=== PATIENT | female | born 1975 | race Caucasian/White ===

== ENCOUNTER 2020-10-30 12:54 | Inpatient (IN) ==
[2020-10-30 14:46] LABS: Basophils % 1.1 %; Eosinophils # 0.2 K/mcL (0.0-0.6); Hematocrit 43.7 % (35.3-44.9); Immature Granulocytes % 0.3 % (0-4); Lymphocytes # 2.1 K/mcL (0.6-4.6); Lymphocytes % 55.7 %; Mean Corpuscular Hemoglobin 31.4 pg (28.0-33.3); Mean Platelet Volume 10.9 fL (9.4-12.4); Monocytes # 0.3 K/mcL (0.0-1.3); Monocytes % 7.7 %; Neutrophils # 1.2 K/mcL (1.6-8.9); Platelet Count 200 K/mcL (140-400); Red Blood Count 4.46 M/mcL (3.82-4.97); Red Cell Distribution Width 15.5 % (11.5-14.5); Segmented Neutrophils % 30.2 %; White Blood Count 3.8 K/mcL (4.3-11.1)
[2020-10-30 15:03] LABS: BUN/Creatinine Ratio 39 (6-26); Blood Urea Nitrogen 30 mg/dL (6-20); Calcium 9.7 mg/dL (8.6-10.3); Carbon Dioxide 26 mEq/L (23-29); Chloride 107 mEq/L (98-107); Glucose 101 mg/dL (70-105); Osmolality,Calculated 294 (280-300); Potassium 4.1 mEq/L (3.5-5.1); Sodium 139 mEq/L (136-145); eGFR For African Americans > 60 (> 60); eGFR For Non-African Americans > 60 (> 60)
[2020-10-30 15:04] LABS: Troponin I < 0.03 ng/mL (< 0.04)
[2020-10-30] MEDS ORDERED: 0.9 % Sodium Chloride 1,000 ML IVC ONE ×2 (15:31→19:30)
[2020-10-30] MEDS ORDERED: Piperacillin/Tazobactam 3.375 GM in 0.9 % Sodium Chloride Mini Bag 100 ML IVPB ONE (15:59)
[2020-10-30 16:13] LABS: Prothrombin Time 11.7 Seconds (9.4-12.1)
[2020-10-30 16:15] LABS: Activated Partial Thrombo Time 38.1 Seconds (26.0-36.0)
[2020-10-30 16:16] LABS: Alanine Aminotransferase 63 Units/L (7-52); Albumin 3.3 g/dL (3.5-5.7); Albumin/Globulin Ratio 0.9 (1.1-2.2); Alkaline Phosphatase 254 Units/L (34-104); Aspartate Amino Transferase 54 Units/L (13-39); Bilirubin,Direct 0.1 mg/dL (0.0-0.2); Bilirubin,Indirect 0.3 mg/dL (0.0-1.0); Bilirubin,Total 0.4 mg/dL (0.3-1.0); Globulin 3.5 g/dL (2.4-3.5); Magnesium 2.2 mg/dL (1.6-2.6); Phosphorous 4.1 mg/dL (2.7-4.5); Total Protein 6.8 g/dL (6.4-8.9)
[2020-10-30] MEDS ORDERED: Acyclovir 1,000 MG in D5% in Water 250 ML IVPB ONE (17:19)
[2020-10-30] MEDS ORDERED: Acyclovir 600 MG in D5% in Water 250 ML IVPB ONE (17:30)
[2020-10-30 18:05] LABS: Bacteria,Urine Few per hpf (None-Few); Bilirubin,Urine Negative (Negative); Blood,Urine Large (Negative); Budding Yeast,Urine Few per hpf (None Seen); Clarity,Urine Turbid (Clear); Color,Urine Yellow (Yellow); Glucose,Urine (UA) Normal (Normal); Ketones,Urine Negative (Negative); Leukocyte Esterase,Urine Large (Negative); Mucus,Urine Few per lpf (None-Few); Nitrite,Urine Negative (Negative); PH,Urine 7.5 pH Units (5.0-8.0); Protein,Urine Trace mg/dL (Neg-Trace); RBC,Urine TNTC per hpf (0-3); Squamous Epithelial Cell,Urine Few per hpf (None-Few); Urobilinogen,Urine Normal (Normal); WBC,Urine TNTC per hpf (0-3)
[2020-10-30] MEDS ORDERED: Naloxone 0.4 MG/ML INJ IVP PRN (21:01)
[2020-10-30] MEDS ORDERED: Ondansetron 4 MG/2 ML VIAL IVP PRN (21:01)
[2020-10-31 01:17] LABS: INR 1.1; Prothrombin Time 12.6 Seconds (9.4-12.1)
[2020-10-31 01:34] LABS: Alanine Aminotransferase 56 Units/L (7-52); Albumin 3.4 g/dL (3.5-5.7); Alkaline Phosphatase 250 Units/L (34-104); Aspartate Amino Transferase 43 Units/L (13-39); BUN/Creatinine Ratio 30 (6-26); Bilirubin,Total 0.4 mg/dL (0.3-1.0); Blood Urea Nitrogen 22 mg/dL (6-20); Calcium 9.4 mg/dL (8.6-10.3); Carbon Dioxide 21 mEq/L (23-29); Chloride 112 mEq/L (98-107); Globulin 3.3 g/dL (2.4-3.5); Glucose 81 mg/dL (70-105); Osmolality,Calculated 294 (280-300); Potassium 3.7 mEq/L (3.5-5.1); Sodium 141 mEq/L (136-145); Total Protein 6.7 g/dL (6.4-8.9); eGFR For African Americans > 60 (> 60); eGFR For Non-African Americans > 60 (> 60)
[2020-10-31] MEDS ORDERED: Ringers Solution, Lactated 1,000 ML IVC SCH (01:45)
[2020-10-31] MEDS ORDERED: cefTRIAXone 2,000 MG in Water for inj. (sterile) 20 ML IVP SCH (02:00)
[2020-10-31] MEDS: *HR* Heparin 5,000 UNIT/ML VIAL SQ SCH ×3 (05:25→20:00)
[2020-10-31 05:45] LABS: Basophils % 0.8 %; Eosinophils # 0.2 K/mcL (0.0-0.6); Eosinophils % 3.5 %; Hematocrit 41.8 % (35.3-44.9); Hemoglobin 13.3 g/dL (11.5-15.4); Immature Granulocytes % 0.2 % (0-4); Lymphocytes # 2.2 K/mcL (0.6-4.6); Mean Corpuscular HGB Conc 31.8 g/dL (31.6-35.5); Mean Corpuscular Hemoglobin 32.2 pg (28.0-33.3); Mean Corpuscular Volume 101.2 fL (83.0-100.0); Mean Platelet Volume 10.9 fL (9.4-12.4); Monocytes # 0.4 K/mcL (0.0-1.3); Monocytes % 7.1 %; Neutrophils # 2.3 K/mcL (1.6-8.9); Platelet Count 196 K/mcL (140-400); Red Blood Count 4.13 M/mcL (3.82-4.97); Red Cell Distribution Width 15.9 % (11.5-14.5); Segmented Neutrophils % 45.4 %; White Blood Count 5.1 K/mcL (4.3-11.1)
[2020-10-31] MEDS ORDERED: Furosemide 20 MG/2 ML VIAL IVP ONE (07:04)
[2020-10-31] MEDS ORDERED: Perflutren Lipid Microsphere 1.3 ML in 0.9 % Sodium Chloride 8.7 ML IVP PRN (07:50)
[2020-10-31 08:16] LABS: ABG Base Excess -2 mEq/L (-2 to 3); ABG HCO3 25 mEq/L (21-27); ABG Oxygen Saturation 100 % (95-98); ABG PCO2 47 mmHg (35-45); ABG PH 7.33 pH Units (7.32-7.45); ABG PO2 180 mmHg (85-104); ABG TCO2 26 mEq/L (20-26)
[2020-10-31 08:49] LABS: Adenovirus Not Detected (Not Detect); Bordetella Pertussis Not Detected (Not Detect); Chlamydophila pneumoniae Not Detected (Not Detect); Coronavirus 229E Not Detected (Not Detect); Coronavirus HKU1 Not Detected (Not Detect); Coronavirus NL63 Not Detected (Not Detect); Coronavirus OC43 Not Detected (Not Detect); Human Metapneumovirus Not Detected (Not Detect); Human Rhinovirus/Enterovirus Not Detected (Not Detect); Influenza A Subtype 2009 H1 Not Detected (Not Detect); Influenza B Not Detected (Not Detect); Mycoplasma pneumoniae Not Detected (Not Detect); Parainfluenza Virus 1 Not Detected (Not Detect); Parainfluenza Virus 2 Not Detected (Not Detect); Parainfluenza Virus 3 Not Detected (Not Detect); Parainfluenza Virus 4 Not Detected (Not Detect); Respiratory Syncytial Virus Not Detected (Not Detect); SARS-CoV-2 Not Detected (Not Detect)
[2020-10-31] MEDS: Piperacillin/Tazobactam 3.375 GM in 0.9 % Sodium Chloride Mini Bag 100 ML IVPB SCH ×3 (10:14→23:04)
[2020-10-31] MEDS: Ipratropium/Albuterol Neb 3 ML IH SCH ×3 (10:53→22:59)
[2020-11-01] MEDS: Ipratropium/Albuterol Neb 3 ML IH SCH ×2 (04:39→11:20)
[2020-11-01] MEDS: *HR* Heparin 5,000 UNIT/ML VIAL SQ SCH ×3 (04:56→20:02)
[2020-11-01] MEDS: Piperacillin/Tazobactam 3.375 GM in 0.9 % Sodium Chloride Mini Bag 100 ML IVPB SCH ×3 (07:37→23:00)
[2020-11-01 08:41] LABS: Alanine Aminotransferase 51 Units/L (7-52); Albumin 3.5 g/dL (3.5-5.7); Alkaline Phosphatase 247 Units/L (34-104); Aspartate Amino Transferase 34 Units/L (13-39); BUN/Creatinine Ratio 20 (6-26); Blood Urea Nitrogen 18 mg/dL (6-20); Calcium 9.3 mg/dL (8.6-10.3); Carbon Dioxide 26 mEq/L (23-29); Chloride 114 mEq/L (98-107); Globulin 3.6 g/dL (2.4-3.5); Glucose 93 mg/dL (70-105); Osmolality,Calculated 308 (280-300); Potassium 3.6 mEq/L (3.5-5.1); Sodium 148 mEq/L (136-145); Total Protein 7.1 g/dL (6.4-8.9); eGFR For African Americans > 60 (> 60); eGFR For Non-African Americans > 60 (> 60)
[2020-11-01 08:42] LABS: Bilirubin,Total 0.4 mg/dL (0.3-1.0)
[2020-11-01 08:43] LABS: Magnesium 2.3 mg/dL (1.6-2.6); Phosphorous 3.2 mg/dL (2.7-4.5)
[2020-11-01 08:57] LABS: Basophils # 0.1 K/mcL (0.0-0.2); Eosinophils # 0.2 K/mcL (0.0-0.6); Eosinophils % 3.1 %; Hemoglobin 14.2 g/dL (11.5-15.4); Immature Granulocytes % 0.2 % (0-4); Mean Corpuscular HGB Conc 32.3 g/dL (31.6-35.5); Mean Corpuscular Hemoglobin 31.9 pg (28.0-33.3); Mean Corpuscular Volume 98.9 fL (83.0-100.0); Mean Platelet Volume 11.3 fL (9.4-12.4); Monocytes # 0.4 K/mcL (0.0-1.3); Monocytes % 8.1 %; Neutrophils # 2.6 K/mcL (1.6-8.9); Platelet Count 218 K/mcL (140-400); Red Blood Count 4.45 M/mcL (3.82-4.97); Red Cell Distribution Width 15.9 % (11.5-14.5); Segmented Neutrophils % 49.6 %; White Blood Count 5.2 K/mcL (4.3-11.1)
[2020-11-01] MEDS ORDERED: Acetaminophen 325 MG TABLET PO PRN (10:24)
[2020-11-01] MEDS ORDERED: Atropine 1% Opth Drops 100 DROP/5 ML BOTTLE SL PRN (10:24)
[2020-11-01] MEDS ORDERED: *HR* LORazepam 2 MG/ML VIAL IVP PRN (10:27)
[2020-11-01] MEDS ORDERED: MOM Conc 10 ML UD.LIQ GTUBE PRN (10:32)
[2020-11-01] MEDS ORDERED: Calamine/Zinc oxide Lotion 120 ML BOTTLE TP PRN (10:33)
[2020-11-01] MEDS ORDERED: Ipratropium/Albuterol Neb 3 ML IH PRN (11:31)
[2020-11-01] MEDS: lamoTRIgine 100 MG TABLET GTUBE SCH ×2 (12:28→20:02)
[2020-11-01] MEDS: Baclofen 10 MG TABLET GTUBE SCH ×2 (14:40→20:02)
[2020-11-01] MEDS: Valproic Acid Oral Soln 250 MG/5 ML UDC GTUBE SCH (14:40)
[2020-11-01] MEDS: polyethylene glycoL 3350 17 GM POWD.PACK GTUBE SCH (17:00)
[2020-11-01] MEDS: Docusate Oral Soln 100 MG/10 ML UDC GTUBE SCH (20:02)
[2020-11-02] MEDS: Valproic Acid Oral Soln 250 MG/5 ML UDC GTUBE SCH ×2 (02:39→14:52)
[2020-11-02 03:51] LABS: Basophils # 0.1 K/mcL (0.0-0.2); Basophils % 0.7 %; Eosinophils # 0.3 K/mcL (0.0-0.6); Eosinophils % 4.5 %; Hematocrit 41.4 % (35.3-44.9); Hemoglobin 13.2 g/dL (11.5-15.4); Immature Granulocytes % 0.1 % (0-4); Mean Corpuscular HGB Conc 31.9 g/dL (31.6-35.5); Mean Corpuscular Hemoglobin 31.1 pg (28.0-33.3); Mean Corpuscular Volume 97.6 fL (83.0-100.0); Mean Platelet Volume 11.3 fL (9.4-12.4); Monocytes # 0.6 K/mcL (0.0-1.3); Monocytes % 8.9 %; Neutrophils # 2.7 K/mcL (1.6-8.9); Platelet Count 209 K/mcL (140-400); Red Blood Count 4.24 M/mcL (3.82-4.97); Red Cell Distribution Width 15.9 % (11.5-14.5); Segmented Neutrophils % 40.8 %; White Blood Count 6.7 K/mcL (4.3-11.1)
[2020-11-02 04:06] LABS: BUN/Creatinine Ratio 18 (6-26); Blood Urea Nitrogen 15 mg/dL (6-20); Calcium 9.4 mg/dL (8.6-10.3); Carbon Dioxide 27 mEq/L (23-29); Chloride 113 mEq/L (98-107); Glucose 135 mg/dL (70-105); Magnesium 2.2 mg/dL (1.6-2.6); Osmolality,Calculated 313 (280-300); Phosphorous 2.4 mg/dL (2.7-4.5); Potassium 3.3 mEq/L (3.5-5.1); Sodium 150 mEq/L (136-145); eGFR For African Americans > 60 (> 60); eGFR For Non-African Americans > 60 (> 60)
[2020-11-02] MEDS: Vancomycin 500 MG in 0.9 % Sodium Chloride Mini Bag 100 ML IVPB SCH (05:20)
[2020-11-02] MEDS: *HR* Heparin 5,000 UNIT/ML VIAL SQ SCH ×3 (05:20→20:00)
[2020-11-02] MEDS: Piperacillin/Tazobactam 3.375 GM in 0.9 % Sodium Chloride Mini Bag 100 ML IVPB SCH ×2 (08:07→14:52)
[2020-11-02] MEDS: Docusate Oral Soln 100 MG/10 ML UDC GTUBE SCH ×2 (08:08→19:59)
[2020-11-02] MEDS: Baclofen 10 MG TABLET GTUBE SCH ×3 (08:08→19:59)
[2020-11-02] MEDS: Potassium Chloride Elixir 20 MEQ/15 ML UDC GTUBE SCH (08:08)
[2020-11-02] MEDS: Artificial Tears SOLN 15 ML BOTTLE OP SCH (08:08)
[2020-11-02] MEDS: lamoTRIgine 100 MG TABLET GTUBE SCH ×2 (08:08→19:59)
[2020-11-02] MEDS: polyethylene glycoL 3350 17 GM POWD.PACK GTUBE SCH (16:53)
[2020-11-02] MEDS ORDERED: Potassium Chloride Elixir 20 MEQ/15 ML UDC GTUBE ONE (17:35)
[2020-11-03] MEDS: Valproic Acid Oral Soln 250 MG/5 ML UDC GTUBE SCH ×2 (01:26→12:42)
[2020-11-03] MEDS: Piperacillin/Tazobactam 3.375 GM in 0.9 % Sodium Chloride Mini Bag 100 ML IVPB SCH ×4 (01:26→23:00)
[2020-11-03] MEDS: Vancomycin 500 MG in 0.9 % Sodium Chloride Mini Bag 100 ML IVPB SCH (04:57)
[2020-11-03] MEDS: *HR* Heparin 5,000 UNIT/ML VIAL SQ SCH ×3 (04:57→23:00)
[2020-11-03] MEDS: Baclofen 10 MG TABLET GTUBE SCH ×3 (07:29→22:32)
[2020-11-03] MEDS: lamoTRIgine 100 MG TABLET GTUBE SCH ×2 (07:29→20:12)
[2020-11-03] MEDS: Docusate Oral Soln 100 MG/10 ML UDC GTUBE SCH ×2 (07:29→20:12)
[2020-11-03] MEDS: Potassium Chloride Elixir 20 MEQ/15 ML UDC GTUBE SCH (07:29)
[2020-11-03] MEDS: Artificial Tears SOLN 15 ML BOTTLE OP SCH (07:30)
[2020-11-03 08:54] LABS: Hematocrit 44.8 % (35.3-44.9); Hemoglobin 14.1 g/dL (11.5-15.4); Mean Corpuscular HGB Conc 31.5 g/dL (31.6-35.5); Mean Corpuscular Hemoglobin 31.8 pg (28.0-33.3); Mean Corpuscular Volume 100.9 fL (83.0-100.0); Mean Platelet Volume 11.1 fL (9.4-12.4); Platelet Count 196 K/mcL (140-400); Red Blood Count 4.44 M/mcL (3.82-4.97); Red Cell Distribution Width 16.6 % (11.5-14.5); White Blood Count 5.5 K/mcL (4.3-11.1)
[2020-11-03 10:14] LABS: Alanine Aminotransferase 34 Units/L (7-52); Albumin 3.4 g/dL (3.5-5.7); Albumin/Globulin Ratio 0.9 (1.1-2.2); Alkaline Phosphatase 205 Units/L (34-104); Aspartate Amino Transferase 29 Units/L (13-39); BUN/Creatinine Ratio 17 (6-26); Bilirubin,Total 0.3 mg/dL (0.3-1.0); Blood Urea Nitrogen 13 mg/dL (6-20); Calcium 9.3 mg/dL (8.6-10.3); Carbon Dioxide 16 mEq/L (23-29); Chloride 116 mEq/L (98-107); Globulin 3.6 g/dL (2.4-3.5); Glucose 85 mg/dL (70-105); Osmolality,Calculated 299 (280-300); Sodium 145 mEq/L (136-145); eGFR For African Americans > 60 (> 60); eGFR For Non-African Americans > 60 (> 60)
[2020-11-03] MEDS: polyethylene glycoL 3350 17 GM POWD.PACK GTUBE SCH (15:57)
[2020-11-04] MEDS: Valproic Acid Oral Soln 250 MG/5 ML UDC GTUBE SCH ×2 (01:45→13:06)
[2020-11-04] MEDS: *HR* Heparin 5,000 UNIT/ML VIAL SQ SCH ×3 (06:16→20:36)
[2020-11-04] MEDS: Vancomycin 500 MG in 0.9 % Sodium Chloride Mini Bag 100 ML IVPB SCH (06:16)
[2020-11-04] MEDS: lamoTRIgine 100 MG TABLET GTUBE SCH ×2 (07:34→20:36)
[2020-11-04] MEDS: Docusate Oral Soln 100 MG/10 ML UDC GTUBE SCH ×2 (07:34→20:36)
[2020-11-04] MEDS: Potassium Chloride Elixir 20 MEQ/15 ML UDC GTUBE SCH (07:34)
[2020-11-04] MEDS: Baclofen 10 MG TABLET GTUBE SCH ×3 (07:35→20:36)
[2020-11-04] MEDS: Piperacillin/Tazobactam 3.375 GM in 0.9 % Sodium Chloride Mini Bag 100 ML IVPB SCH ×3 (07:35→23:20)
[2020-11-04] MEDS: Artificial Tears SOLN 15 ML BOTTLE OP SCH (07:35)
[2020-11-04] MEDS: polyethylene glycoL 3350 17 GM POWD.PACK GTUBE SCH (14:48)
[2020-11-05] MEDS: Valproic Acid Oral Soln 250 MG/5 ML UDC GTUBE SCH ×2 (02:33→13:37)
[2020-11-05] MEDS: *HR* Heparin 5,000 UNIT/ML VIAL SQ SCH (05:03)
[2020-11-05] MEDS: Vancomycin 750 MG in 0.9 % Sodium Chloride Mini Bag 100 ML IVPB SCH (06:03)
[2020-11-05] MEDS: Baclofen 10 MG TABLET GTUBE SCH ×3 (07:35→20:15)
[2020-11-05] MEDS: Potassium Chloride Elixir 20 MEQ/15 ML UDC GTUBE SCH (07:35)
[2020-11-05] MEDS: Docusate Oral Soln 100 MG/10 ML UDC GTUBE SCH ×2 (07:35→20:15)
[2020-11-05] MEDS: lamoTRIgine 100 MG TABLET GTUBE SCH ×2 (07:35→20:15)
[2020-11-05] MEDS: Artificial Tears SOLN 15 ML BOTTLE OP SCH (07:36)
[2020-11-05] MEDS: Piperacillin/Tazobactam 3.375 GM in 0.9 % Sodium Chloride Mini Bag 100 ML IVPB SCH ×3 (07:36→23:12)
[2020-11-05] MEDS: polyethylene glycoL 3350 17 GM POWD.PACK GTUBE SCH (16:19)
[2020-11-06] MEDS: Valproic Acid Oral Soln 250 MG/5 ML UDC GTUBE SCH (01:29)
[2020-11-06] MEDS: Vancomycin 750 MG in 0.9 % Sodium Chloride Mini Bag 100 ML IVPB SCH (05:28)
[2020-11-06] MEDS ORDERED: *HR* Enoxaparin 40 MG/0.4 ML SYRINGE SQ SCH (06:00)
[2020-11-06 06:26] VITALS: BP 123/86
[2020-11-06] MEDS: Piperacillin/Tazobactam 3.375 GM in 0.9 % Sodium Chloride Mini Bag 100 ML IVPB SCH (08:40)
[2020-11-06] MEDS: lamoTRIgine 100 MG TABLET GTUBE SCH (08:40)
[2020-11-06] MEDS: Docusate Oral Soln 100 MG/10 ML UDC GTUBE SCH (08:41)
[2020-11-06] MEDS: Potassium Chloride Elixir 20 MEQ/15 ML UDC GTUBE SCH (08:41)
[2020-11-06] MEDS: Baclofen 10 MG TABLET GTUBE SCH (08:41)
[2020-11-06] MEDS: Artificial Tears SOLN 15 ML BOTTLE OP SCH (08:51)
== END 2020-11-06 13:08 | disposition other institution (70) | DRG 720 ==
LOC: EMEROOARM 12:54 → 3BNU 12:54 → SUATTDRO 19:34 → 3BNU 20:21 → SUATTDRO 11-01 13:03
PROVIDERS: ADMIT Internal Medicine; ATTEND Nurse Practitioner

== ENCOUNTER 2020-11-18 16:04 | Inpatient (IN) ==
[2020-11-18 17:04] LABS: Bacteria,Urine Few per hpf (None-Few); Bilirubin,Urine Negative (Negative); Blood,Urine Large (Negative); Clarity,Urine Clear (Clear); Color,Urine Yellow (Yellow); Glucose,Urine (UA) Normal (Normal); Ketones,Urine Negative (Negative); Leukocyte Esterase,Urine Large (Negative); Mucus,Urine Few per lpf (None-Few); Nitrite,Urine Negative (Negative); PH,Urine 7.5 pH Units (5.0-8.0); Protein,Urine Negative (Neg-Trace); Specific Gravity,Urine < 1.005 (1.010-1.025); Squamous Epithelial Cell,Urine Few per hpf (None-Few); Urobilinogen,Urine Normal (Normal); WBC,Urine 15-30 per hpf (0-3)
[2020-11-18] MEDS ORDERED: cefTAZidime 2,000 MG in 0.9 % Sodium Chloride Mini Bag 100 ML IVP STA (17:11)
[2020-11-18 17:21] LABS: Basophils # 0.1 K/mcL (0.0-0.2); Basophils % 0.7 %; Eosinophils # 0.2 K/mcL (0.0-0.6); Eosinophils % 2.9 %; Hematocrit 41.2 % (35.3-44.9); Hemoglobin 13.3 g/dL (11.5-15.4); Immature Granulocytes % 0.4 % (0-4); Lymphocytes # 2.4 K/mcL (0.6-4.6); Lymphocytes % 33.4 %; Mean Corpuscular HGB Conc 32.3 g/dL (31.6-35.5); Mean Corpuscular Hemoglobin 31.6 pg (28.0-33.3); Mean Corpuscular Volume 97.9 fL (83.0-100.0); Mean Platelet Volume 9.9 fL (9.4-12.4); Monocytes # 0.6 K/mcL (0.0-1.3); Monocytes % 7.7 %; Neutrophils # 3.9 K/mcL (1.6-8.9); Platelet Count 290 K/mcL (140-400); Red Blood Count 4.21 M/mcL (3.82-4.97); Red Cell Distribution Width 15.9 % (11.5-14.5); Segmented Neutrophils % 54.9 %; White Blood Count 7.1 K/mcL (4.3-11.1)
[2020-11-18 17:39] LABS: Alanine Aminotransferase 19 Units/L (7-52); Albumin 3.6 g/dL (3.5-5.7); Albumin/Globulin Ratio 0.9 (1.1-2.2); Alkaline Phosphatase 181 Units/L (34-104); Aspartate Amino Transferase 20 Units/L (13-39); BUN/Creatinine Ratio 35 (6-26); Bilirubin,Direct 0.1 mg/dL (0.0-0.2); Bilirubin,Indirect 0.1 mg/dL (0.0-1.0); Bilirubin,Total 0.2 mg/dL (0.3-1.0); Blood Urea Nitrogen 27 mg/dL (6-20); Calcium 9.7 mg/dL (8.6-10.3); Carbon Dioxide 25 mEq/L (23-29); Chloride 103 mEq/L (98-107); Globulin 3.9 g/dL (2.4-3.5); Glucose 73 mg/dL (70-105); Osmolality,Calculated 288 (280-300); Potassium 4.5 mEq/L (3.5-5.1); Sodium 137 mEq/L (136-145); Total Protein 7.5 g/dL (6.4-8.9); Troponin I < 0.03 ng/mL (< 0.04); eGFR For African Americans > 60 (> 60); eGFR For Non-African Americans > 60 (> 60)
[2020-11-18] MEDS ORDERED: Naloxone 0.4 MG/ML INJ IVP PRN (18:12)
[2020-11-18] MEDS ORDERED: MOM Conc 10 ML UD.LIQ GTUBE PRN (18:16)
[2020-11-18] MEDS ORDERED: Atropine 1% Opth Drops 100 DROP/5 ML BOTTLE SL PRN (18:16)
[2020-11-18] MEDS ORDERED: Albuterol 2.5 MG/3 ML NEBULIZER IH PRN (18:16)
[2020-11-18] MEDS ORDERED: Saliva Stimulant 44.3ml BOTTLE PO PRN (19:06)
[2020-11-18] MEDS ORDERED: Carbamide Peroxide 150 DROP/15 ML BOTTLE BOTH EARS PRN (19:10)
[2020-11-18] MEDS ORDERED: Carbamide Peroxide 150 DROP/15 ML BOTTLE RIGHT EAR ONE (19:10)
[2020-11-18] MEDS ORDERED: Cetaphil Lotion 473 ML BOTTLE TP PRN (19:23)
[2020-11-18] MEDS ORDERED: Desitin (Zinc Oxide) 56 GM TUBE TP PRN (19:25)
[2020-11-18] MEDS: Ringers Solution, Lactated 1,000 ML IVC SCH (20:13)
[2020-11-18] MEDS: Baclofen 10 MG TABLET GTUBE SCH (20:13)
[2020-11-18] MEDS: polyethylene glycoL 3350 17 GM POWD.PACK GTUBE SCH (20:13)
[2020-11-18] MEDS: lamoTRIgine 100 MG TABLET GTUBE SCH (20:13)
[2020-11-18] MEDS: Docusate Oral Soln 100 MG/10 ML UDC GTUBE SCH (20:13)
[2020-11-18] MEDS ORDERED: Mag Hydrox/Al Hydrox/Simeth 30 ML UDC GTUBE PRN (20:21)
[2020-11-18] MEDS ORDERED: CALAMINE TP PRN (20:23)
[2020-11-18] MEDS ORDERED: MENTHOL TP PRN (20:23)
[2020-11-18] MEDS ORDERED: PETROLAT TP PRN (20:23)
[2020-11-18] MEDS ORDERED: ZINC TP PRN (20:23)
[2020-11-18] MEDS ORDERED: CHLORHEXIDINE GLUCONATE TP SCH (20:25)
[2020-11-19] MEDS: cefTAZidime 2,000 MG in Water for inj. (sterile) 20 ML IVP SCH ×3 (01:12→16:58)
[2020-11-19 05:46] LABS: Basophils # 0.1 K/mcL (0.0-0.2); Basophils % 1.1 %; Eosinophils # 0.2 K/mcL (0.0-0.6); Eosinophils % 4.2 %; Immature Granulocytes % 0.4 % (0-4); Lymphocytes # 2.2 K/mcL (0.6-4.6); Lymphocytes % 48.7 %; Mean Corpuscular HGB Conc 32.4 g/dL (31.6-35.5); Mean Corpuscular Hemoglobin 31.9 pg (28.0-33.3); Mean Corpuscular Volume 98.5 fL (83.0-100.0); Mean Platelet Volume 10.3 fL (9.4-12.4); Monocytes # 0.4 K/mcL (0.0-1.3); Monocytes % 8.4 %; Neutrophils # 1.7 K/mcL (1.6-8.9); Platelet Count 308 K/mcL (140-400); Red Blood Count 4.67 M/mcL (3.82-4.97); Red Cell Distribution Width 16.1 % (11.5-14.5); Segmented Neutrophils % 37.2 %; White Blood Count 4.5 K/mcL (4.3-11.1)
[2020-11-19 05:48] LABS: Hemoglobin 14.9 g/dL (11.5-15.4)
[2020-11-19 06:08] LABS: BUN/Creatinine Ratio 26 (6-26); Blood Urea Nitrogen 20 mg/dL (6-20); Calcium 9.6 mg/dL (8.6-10.3); Carbon Dioxide 24 mEq/L (23-29); Chloride 106 mEq/L (98-107); Glucose 70 mg/dL (70-105); Osmolality,Calculated 289 (280-300); Potassium 4.1 mEq/L (3.5-5.1); Sodium 139 mEq/L (136-145); eGFR For African Americans > 60 (> 60); eGFR For Non-African Americans > 60 (> 60)
[2020-11-19] MEDS: *HR* Enoxaparin 40 MG/0.4 ML SYRINGE SQ SCH (06:13)
[2020-11-19] MEDS: Acetylcysteine 10% 2 ML INHSOL IH SCH ×5 (07:45→23:41)
[2020-11-19] MEDS: Ipratropium/Albuterol Neb 3 ML IH SCH ×5 (07:45→23:39)
[2020-11-19] MEDS: Baclofen 10 MG TABLET GTUBE SCH ×3 (08:28→21:54)
[2020-11-19] MEDS: Multivit/Ca/Min/Fe/FA 1 TAB TABLET PO SCH (08:28)
[2020-11-19] MEDS: lamoTRIgine 100 MG TABLET GTUBE SCH ×2 (08:28→21:54)
[2020-11-19] MEDS: Potassium Chloride Elixir 20 MEQ/15 ML UDC GTUBE SCH (08:28)
[2020-11-19] MEDS: Cholecalciferol (D-3) 1,000 UNIT (25MCG) TABLET PO SCH (08:28)
[2020-11-19] MEDS: Docusate Oral Soln 100 MG/10 ML UDC GTUBE SCH ×2 (08:28→21:54)
[2020-11-19] MEDS: Artificial Tears SOLN 15 ML BOTTLE BOTH EYES SCH (08:29)
[2020-11-19] MEDS: CALCITONIN SALMON SYNTHETIC NS SCH (08:47)
[2020-11-19] MEDS: polyethylene glycoL 3350 17 GM POWD.PACK GTUBE SCH (21:54)
[2020-11-20] MEDS: cefTAZidime 2,000 MG in Water for inj. (sterile) 20 ML IVP SCH ×4 (01:07→23:59)
[2020-11-20] MEDS: Ringers Solution, Lactated 1,000 ML IVC SCH (03:20)
[2020-11-20] MEDS: Acetylcysteine 10% 2 ML INHSOL IH SCH ×6 (05:35→20:45)
[2020-11-20] MEDS: Ipratropium/Albuterol Neb 3 ML IH SCH ×5 (05:35→20:45)
[2020-11-20] MEDS: *HR* Enoxaparin 40 MG/0.4 ML SYRINGE SQ SCH (05:55)
[2020-11-20 06:25] LABS: Basophils # 0.1 K/mcL (0.0-0.2); Basophils % 1.2 %; Eosinophils # 0.1 K/mcL (0.0-0.6); Eosinophils % 1.8 %; Hematocrit 42.1 % (35.3-44.9); Hemoglobin 13.7 g/dL (11.5-15.4); Immature Granulocytes % 0.3 % (0-4); Lymphocytes # 2.1 K/mcL (0.6-4.6); Lymphocytes % 31.6 %; Mean Corpuscular HGB Conc 32.5 g/dL (31.6-35.5); Mean Corpuscular Hemoglobin 31.9 pg (28.0-33.3); Mean Corpuscular Volume 98.1 fL (83.0-100.0); Mean Platelet Volume 9.9 fL (9.4-12.4); Monocytes # 0.8 K/mcL (0.0-1.3); Monocytes % 11.5 %; Neutrophils # 3.5 K/mcL (1.6-8.9); Platelet Count 316 K/mcL (140-400); Red Blood Count 4.29 M/mcL (3.82-4.97); Segmented Neutrophils % 53.6 %; White Blood Count 6.5 K/mcL (4.3-11.1)
[2020-11-20 06:58] LABS: BUN/Creatinine Ratio 22 (6-26); Blood Urea Nitrogen 19 mg/dL (6-20); Calcium 9.9 mg/dL (8.6-10.3); Carbon Dioxide 26 mEq/L (23-29); Chloride 107 mEq/L (98-107); Glucose 111 mg/dL (70-105); Osmolality,Calculated 295 (280-300); Potassium 4.3 mEq/L (3.5-5.1); Sodium 141 mEq/L (136-145); eGFR For African Americans > 60 (> 60); eGFR For Non-African Americans > 60 (> 60)
[2020-11-20] MEDS: Docusate Oral Soln 100 MG/10 ML UDC GTUBE SCH ×2 (08:07→20:29)
[2020-11-20] MEDS: Baclofen 10 MG TABLET GTUBE SCH ×3 (08:08→20:47)
[2020-11-20] MEDS: lamoTRIgine 100 MG TABLET GTUBE SCH ×2 (08:08→20:47)
[2020-11-20] MEDS: Cholecalciferol (D-3) 1,000 UNIT (25MCG) TABLET PO SCH (08:08)
[2020-11-20] MEDS: Multivit/Ca/Min/Fe/FA 1 TAB TABLET PO SCH (08:08)
[2020-11-20] MEDS: Potassium Chloride Elixir 20 MEQ/15 ML UDC GTUBE SCH (08:08)
[2020-11-20] MEDS: CALCITONIN SALMON SYNTHETIC NS SCH (08:09)
[2020-11-20] MEDS: Artificial Tears SOLN 15 ML BOTTLE BOTH EYES SCH (08:23)
[2020-11-20] MEDS: polyethylene glycoL 3350 17 GM POWD.PACK GTUBE SCH (16:57)
[2020-11-21] MEDS: Acetylcysteine 10% 2 ML INHSOL IH SCH ×7 (00:30→23:03)
[2020-11-21] MEDS: Ipratropium/Albuterol Neb 3 ML IH SCH ×7 (00:30→23:03)
[2020-11-21] MEDS: *HR* Enoxaparin 40 MG/0.4 ML SYRINGE SQ SCH (04:42)
[2020-11-21 06:45] LABS: Basophils # 0.1 K/mcL (0.0-0.2); Basophils % 1.1 %; Eosinophils # 0.2 K/mcL (0.0-0.6); Hematocrit 43.5 % (35.3-44.9); Hemoglobin 13.6 g/dL (11.5-15.4); Immature Granulocytes % 0.2 % (0-4); Lymphocytes # 2.8 K/mcL (0.6-4.6); Lymphocytes % 52.8 %; Mean Corpuscular HGB Conc 31.3 g/dL (31.6-35.5); Mean Corpuscular Hemoglobin 31.2 pg (28.0-33.3); Mean Corpuscular Volume 99.8 fL (83.0-100.0); Mean Platelet Volume 9.5 fL (9.4-12.4); Monocytes # 0.6 K/mcL (0.0-1.3); Monocytes % 11.4 %; Neutrophils # 1.6 K/mcL (1.6-8.9); Platelet Count 324 K/mcL (140-400); Red Blood Count 4.36 M/mcL (3.82-4.97); Red Cell Distribution Width 16.3 % (11.5-14.5); Segmented Neutrophils % 30.5 %; White Blood Count 5.3 K/mcL (4.3-11.1)
[2020-11-21 07:02] LABS: BUN/Creatinine Ratio 24 (6-26); Blood Urea Nitrogen 20 mg/dL (6-20); Calcium 9.7 mg/dL (8.6-10.3); Carbon Dioxide 27 mEq/L (23-29); Chloride 107 mEq/L (98-107); Glucose 104 mg/dL (70-105); Osmolality,Calculated 295 (280-300); Potassium 4.5 mEq/L (3.5-5.1); Sodium 141 mEq/L (136-145); eGFR For African Americans > 60 (> 60); eGFR For Non-African Americans > 60 (> 60)
[2020-11-21] MEDS: cefTAZidime 2,000 MG in Water for inj. (sterile) 20 ML IVP SCH ×2 (08:52→17:16)
[2020-11-21] MEDS: Potassium Chloride Elixir 20 MEQ/15 ML UDC GTUBE SCH ×2 (08:53→14:03)
[2020-11-21] MEDS: Baclofen 10 MG TABLET GTUBE SCH ×4 (08:54→21:45)
[2020-11-21] MEDS: Cholecalciferol (D-3) 1,000 UNIT (25MCG) TABLET PO SCH ×2 (08:54→14:03)
[2020-11-21] MEDS: lamoTRIgine 100 MG TABLET GTUBE SCH ×3 (08:55→21:45)
[2020-11-21] MEDS: Multivit/Ca/Min/Fe/FA 1 TAB TABLET PO SCH ×2 (08:55→14:03)
[2020-11-21] MEDS: Docusate Oral Soln 100 MG/10 ML UDC GTUBE SCH ×2 (08:56→21:45)
[2020-11-21] MEDS: CALCITONIN SALMON SYNTHETIC NS SCH (08:56)
[2020-11-21] MEDS: Artificial Tears SOLN 15 ML BOTTLE BOTH EYES SCH (08:57)
[2020-11-21] MEDS: polyethylene glycoL 3350 17 GM POWD.PACK GTUBE SCH (16:29)
[2020-11-22] MEDS: cefTAZidime 2,000 MG in Water for inj. (sterile) 20 ML IVP SCH ×2 (01:15→08:50)
[2020-11-22] MEDS: Ipratropium/Albuterol Neb 3 ML IH SCH ×2 (04:04→07:28)
[2020-11-22] MEDS: Acetylcysteine 10% 2 ML INHSOL IH SCH ×2 (04:04→07:28)
[2020-11-22] MEDS: *HR* Enoxaparin 40 MG/0.4 ML SYRINGE SQ SCH (06:21)
[2020-11-22 06:29] LABS: Basophils # 0.1 K/mcL (0.0-0.2); Basophils % 0.6 %; Eosinophils # 0.2 K/mcL (0.0-0.6); Eosinophils % 1.4 %; Hematocrit 49.2 % (35.3-44.9); Hemoglobin 15.7 g/dL (11.5-15.4); Immature Granulocytes % 0.2 % (0-4); Lymphocytes # 1.7 K/mcL (0.6-4.6); Lymphocytes % 15.8 %; Mean Corpuscular HGB Conc 31.9 g/dL (31.6-35.5); Mean Corpuscular Hemoglobin 32.2 pg (28.0-33.3); Mean Corpuscular Volume 100.8 fL (83.0-100.0); Mean Platelet Volume 9.6 fL (9.4-12.4); Monocytes # 0.6 K/mcL (0.0-1.3); Monocytes % 5.9 %; Platelet Count 344 K/mcL (140-400); Red Blood Count 4.88 M/mcL (3.82-4.97); Red Cell Distribution Width 16.8 % (11.5-14.5); Segmented Neutrophils % 76.1 %; White Blood Count 10.5 K/mcL (4.3-11.1)
[2020-11-22 06:39] VITALS: BP 114/75
[2020-11-22 06:49] LABS: BUN/Creatinine Ratio 22 (6-26); Blood Urea Nitrogen 19 mg/dL (6-20); Calcium 10.3 mg/dL (8.6-10.3); Carbon Dioxide 27 mEq/L (23-29); Chloride 107 mEq/L (98-107); Glucose 116 mg/dL (70-105); Osmolality,Calculated 301 (280-300); Potassium 4.8 mEq/L (3.5-5.1); Sodium 144 mEq/L (136-145); eGFR For African Americans > 60 (> 60); eGFR For Non-African Americans > 60 (> 60)
[2020-11-22] MEDS: Baclofen 10 MG TABLET GTUBE SCH (08:51)
[2020-11-22] MEDS: Docusate Oral Soln 100 MG/10 ML UDC GTUBE SCH (08:51)
[2020-11-22] MEDS: Potassium Chloride Elixir 20 MEQ/15 ML UDC GTUBE SCH (08:51)
[2020-11-22] MEDS: lamoTRIgine 100 MG TABLET GTUBE SCH (08:51)
[2020-11-22] MEDS: Multivit/Ca/Min/Fe/FA 1 TAB TABLET PO SCH (08:52)
[2020-11-22] MEDS: Artificial Tears SOLN 15 ML BOTTLE BOTH EYES SCH (08:52)
[2020-11-22] MEDS: Cholecalciferol (D-3) 1,000 UNIT (25MCG) TABLET PO SCH (08:52)
[2020-11-22] MEDS: CALCITONIN SALMON SYNTHETIC NS SCH (08:52)
== END 2020-11-22 11:42 | DRG 463 ==
LOC: EMEROOARM 16:04 → 3BNU 16:04 → SUATTDRO 21:46
PROVIDERS: ADMIT Internal Medicine; ATTEND Student in an Organized Health Care Education/Training Program

== ENCOUNTER 2021-03-15 08:10 | Inpatient (IN) ==
[2021-03-15] MEDS ORDERED: Artificial Tears SOLN 15 ML BOTTLE BOTH EYES PRN (10:03)
[2021-03-15] MEDS ORDERED: Naloxone 0.4 MG/ML INJ IVP PRN (10:07)
[2021-03-15] MEDS ORDERED: Norepinephrine 4 MG/254 ML IV.SOLN IVC SCH (10:15)
[2021-03-15] MEDS: FentaNYL (PF) 1,000 MCG/100 ML IV.SOLN IVC SCH (10:27)
[2021-03-15] MEDS ORDERED: *HR* Atropine Sulfate 1 MG/10 ML SYRINGE IV ONE (11:07)
[2021-03-15] MEDS ORDERED: *HR* EPINEPHrine 1 MG/10 ML SYRINGE IVP ONE (11:07)
[2021-03-15] MEDS ORDERED: Perflutren Lipid Microsphere 1.3 ML in 0.9 % Sodium Chloride 8.7 ML IVP PRN (11:09)
[2021-03-15 11:36] LABS: VBG Ionized Calcium 1.11 mmol/L (1.15-1.35)
[2021-03-15 11:39] LABS: Hematocrit 38.9 % (35.3-44.9); Hemoglobin 12.7 g/dL (11.5-15.4); Mean Corpuscular HGB Conc 32.6 g/dL (31.6-35.5); Mean Corpuscular Hemoglobin 31.9 pg (28.0-33.3); Mean Corpuscular Volume 97.7 fL (83.0-100.0); Mean Platelet Volume 10.5 fL (9.4-12.4); Platelet Count 181 K/mcL (140-400); Red Blood Count 3.98 M/mcL (3.82-4.97); White Blood Count 20.4 K/mcL (4.3-11.1)
[2021-03-15 11:41] LABS: ABG Base Excess -4 mEq/L (-2 to 3); ABG HCO3 23 mEq/L (21-27); ABG Oxygen Saturation 100 % (95-98); ABG PCO2 46 mmHg (35-45); ABG PO2 350 mmHg (85-104); ABG TCO2 24 mEq/L (20-26); Blood Gas Modality ASSIST CONTROL; Blood Gas VT 400 cc
[2021-03-15 11:47] LABS: INR 1.3; Prothrombin Time 14.7 Seconds (9.4-12.1)
[2021-03-15 12:00] LABS: Albumin 2.5 g/dL (3.5-5.7); Albumin/Globulin Ratio 0.7 (1.1-2.2); Bilirubin,Total 0.7 mg/dL (0.3-1.0); Calcium 8.6 mg/dL (8.6-10.3); Globulin 3.4 g/dL (2.4-3.5); Magnesium 3.5 mg/dL (1.6-2.6); Potassium 5.4 mEq/L (3.5-5.1); Total Protein 5.9 g/dL (6.4-8.9); Troponin I 1.26 ng/mL (< 0.04)
[2021-03-15] MEDS: Artificial Tears SOLN 15 ML BOTTLE BOTH EYES SCH ×3 (13:12→21:10)
[2021-03-15] MEDS: Piperacillin/Tazobactam 3.375 GM in 0.9 % Sodium Chloride Mini Bag 100 ML IVPB SCH (13:14)
[2021-03-15] MEDS: Ringers Solution, Lactated 1,000 ML IVC SCH (13:15)
[2021-03-15] MEDS ORDERED: Isovue-370 500 ML BOTTLE IVP ONE (13:50)
[2021-03-15] MEDS ORDERED: Albuterol 2.5 MG/3 ML NEBULIZER IH PRN (13:54)
[2021-03-15] MEDS: lamoTRIgine 100 MG TABLET GTUBE SCH ×2 (16:34→21:54)
[2021-03-15 16:48] LABS: Adenovirus Not Detected (Not Detect); Bordetella Pertussis Not Detected (Not Detect); Chlamydophila pneumoniae Not Detected (Not Detect); Coronavirus 229E Not Detected (Not Detect); Coronavirus HKU1 Not Detected (Not Detect); Coronavirus NL63 Not Detected (Not Detect); Coronavirus OC43 Not Detected (Not Detect); Human Metapneumovirus Not Detected (Not Detect); Human Rhinovirus/Enterovirus Not Detected (Not Detect); Influenza A Subtype 2009 H1 Not Detected (Not Detect); Influenza B Not Detected (Not Detect); Mycoplasma pneumoniae Not Detected (Not Detect); Parainfluenza Virus 1 Not Detected (Not Detect); Parainfluenza Virus 2 Not Detected (Not Detect); Parainfluenza Virus 3 Not Detected (Not Detect); Parainfluenza Virus 4 Not Detected (Not Detect); Respiratory Syncytial Virus Not Detected (Not Detect); SARS-CoV-2 Not Detected (Not Detect)
[2021-03-15] MEDS ORDERED: Morphine Sulfate Oral CONC 10 MG/0.5 ML ORAL.SYG SL PRN (17:08)
[2021-03-15] MEDS ORDERED: *HR* LORazepam 2 MG/ML VIAL IVP PRN (17:08)
[2021-03-15] MEDS ORDERED: Haloperidol Lactate 5 MG/ML VIAL IVP PRN (17:09)
[2021-03-15] MEDS: polyethylene glycoL 3350 17 GM POWD.PACK GTUBE SCH (17:53)
[2021-03-15] MEDS ORDERED: Chlorhexidine Rinse 15 ML MOUTHWASH MM SCH (21:00)
[2021-03-15] MEDS: Valproic Acid Oral Soln 250 MG/5 ML UDC GTUBE SCH (21:54)
[2021-03-16] MEDS: Piperacillin/Tazobactam 3.375 GM in 0.9 % Sodium Chloride Mini Bag 100 ML IVPB SCH ×2 (00:10→12:48)
[2021-03-16] MEDS: Artificial Tears SOLN 15 ML BOTTLE BOTH EYES SCH ×6 (00:11→20:44)
[2021-03-16 06:26] LABS: Acinetobacter baumannii by PCR Not Detected (Not Detect); Enterobacter cloacae Cmplx PCR Not Detected (Not Detect); Enterobacteriaceae by PCR Not Detected (Not Detect); Escherichia coli by PCR Not Detected (Not Detect); Klebsiella oxytoca by PCR Not Detected (Not Detect); Klebsiella pneumoniae by PCR Not Detected (Not Detect); Proteus by PCR Not Detected (Not Detect); Serratia marcescens by PCR Not Detected (Not Detect); Staphylococcus aureus by PCR Not Detected (Not Detect); Staphylococcus by PCR Not Detected (Not Detect); Streptococcus agalactiae(B)PCR Not Detected (Not Detect); Streptococcus by PCR Not Detected (Not Detect); Streptococcus pneumoniae PCR Not Detected (Not Detect); Streptococcus pyogenes (A) PCR Not Detected (Not Detect)
[2021-03-16 06:27] LABS: Candida albicans by PCR Not Detected (Not Detect); Candida glabrata by PCR Not Detected (Not Detect); Candida krusei by PCR Not Detected (Not Detect); Candida parapsilosis by PCR Not Detected (Not Detect); Candida tropicalis by PCR Not Detected (Not Detect); mecA Methicillin-Resist Gene Not Detected (Not Detect); vanA/B Vancomycin-Resist Genes Not Detected (Not Detect)
[2021-03-16] MEDS: FentaNYL (PF) 1,000 MCG/100 ML IV.SOLN IVC SCH (07:20)
[2021-03-16] MEDS: lamoTRIgine 100 MG TABLET GTUBE SCH ×2 (09:58→20:43)
[2021-03-16] MEDS: Valproic Acid Oral Soln 250 MG/5 ML UDC GTUBE SCH ×2 (09:59→20:43)
[2021-03-16 13:02] LABS: Enterococcus by PCR DETECTED (Not Detect)
[2021-03-16] MEDS ORDERED: Scopolamine Patch 1.5 MG PATCH.TD72 TD SCH (13:15)
[2021-03-16] MEDS: Atropine 1% Opth Drops 100 DROP/5 ML BOTTLE SL PRN ×2 (14:17→20:44)
[2021-03-16] MEDS: polyethylene glycoL 3350 17 GM POWD.PACK GTUBE SCH (16:08)
[2021-03-16] MEDS: Acetaminophen 650 MG RECTAL SUPP RC PRN (17:25)
[2021-03-16 18:28] VITALS: BP 96/67; PULSE 110; TEMP 97.5; O2SAT 87
[2021-03-17] MEDS: Artificial Tears SOLN 15 ML BOTTLE BOTH EYES SCH ×4 (00:25→11:58)
[2021-03-17] MEDS: Piperacillin/Tazobactam 3.375 GM in 0.9 % Sodium Chloride Mini Bag 100 ML IVPB SCH ×2 (00:28→11:59)
[2021-03-17] MEDS: Ringers Solution, Lactated 1,000 ML IVC SCH (03:15)
[2021-03-17] MEDS: FentaNYL (PF) 1,000 MCG/100 ML IV.SOLN IVC SCH (04:28)
[2021-03-17] MEDS: Atropine 1% Opth Drops 100 DROP/5 ML BOTTLE SL PRN ×2 (04:29→09:30)
[2021-03-17] MEDS: lamoTRIgine 100 MG TABLET GTUBE SCH (10:24)
[2021-03-17] MEDS: Valproic Acid Oral Soln 250 MG/5 ML UDC GTUBE SCH (10:24)
[2021-03-17] MEDS ORDERED: Glycopyrrolate 0.2 MG/ML VIAL IVP PRN (11:28)
[2021-03-17] MEDS: Acetaminophen 650 MG RECTAL SUPP RC PRN (11:56)
== END 2021-03-17 14:07 | disposition hospice, inpatient (51) | DRG 196 ==
LOC: ICNU 09:40 → SUATTDRO 09:40 → ICNU 10:03 → 2ANU 19:25
PROVIDERS: ADMIT Internal Medicine; ATTEND General Practice

== ENCOUNTER 2021-03-17 12:04 | Inpatient (IN) ==
[2021-03-17] MEDS ORDERED: Bisacodyl 10 MG RECTAL SUPPOSITORY RC PRN (15:57)
[2021-03-17] MEDS ORDERED: Ondansetron 4 MG/2 ML VIAL IVP PRN (15:57)
[2021-03-17] MEDS ORDERED: *HR* LORazepam Oral Conc 2 MG/ML PO PRN (15:57)
[2021-03-17] MEDS ORDERED: Haloperidol Oral Conc 10 MG/5 ML UDC PO PRN (15:57)
[2021-03-17] MEDS: Scopolamine Patch 1.5 MG PATCH.TD72 TD SCH (16:47)
[2021-03-17] MEDS: FentaNYL (PF) 1,000 MCG/100 ML IV.SOLN IVC SCH (16:47)
[2021-03-17] MEDS: Atropine 1% Opth Drops 100 DROP/5 ML BOTTLE SL PRN ×2 (16:50→20:59)
[2021-03-18] MEDS: Atropine 1% Opth Drops 100 DROP/5 ML BOTTLE SL PRN ×6 (02:04→20:47)
[2021-03-18] MEDS: FentaNYL (PF) 1,000 MCG/100 ML IV.SOLN IVC SCH (15:27)
[2021-03-19] MEDS: Atropine 1% Opth Drops 100 DROP/5 ML BOTTLE SL PRN ×5 (02:26→22:33)
[2021-03-19] MEDS: FentaNYL (PF) 1,000 MCG/100 ML IV.SOLN IVC SCH ×2 (06:23→23:17)
[2021-03-19] MEDS ORDERED: Haloperidol Lactate 5 MG/ML VIAL IVP PRN (11:19)
[2021-03-19] MEDS: *HR* LORazepam 2 MG/ML VIAL IVP PRN (11:42)
[2021-03-20] MEDS: Atropine 1% Opth Drops 100 DROP/5 ML BOTTLE SL PRN ×2 (04:17→06:31)
[2021-03-20] MEDS: *HR* LORazepam 2 MG/ML VIAL IVP PRN (09:13)
[2021-03-20] MEDS: Lacri-Lube 3.5 GM TUBE BOTH EYES SCH ×2 (14:34→23:30)
[2021-03-20] MEDS: FentaNYL (PF) 1,000 MCG/100 ML IV.SOLN IVC SCH (14:35)
[2021-03-20] MEDS: Scopolamine Patch 1.5 MG PATCH.TD72 TD SCH (16:35)
[2021-03-20 18:41] VITALS: BP 142/88; PULSE 100; TEMP 98; O2SAT 85
[2021-03-21] MEDS: FentaNYL (PF) 1,000 MCG/100 ML IV.SOLN IVC SCH (03:22)
== END 2021-03-21 06:09 | disposition expired | DRG 951 ==
LOC: 2ANU 14:10
PROVIDERS: ADMIT Internal Medicine Hospice and Palliative Medicine; ATTEND Internal Medicine Hospice and Palliative Medicine